=== PATIENT | female | born 1990 | race Caucasian/White ===

== ENCOUNTER 2025-05-06 06:55 | Emergency (ER) | payer OTHER ==
[2025-05-06] MEDS ORDERED: LORazepam 2 MG/ML VIAL ONE (07:33)
[2025-05-06] MEDS ORDERED: NA CHLORIDE 0.9% 1,000 ML ONE (07:34)
[2025-05-06] MEDS ORDERED: KETOROLAC 30 MG/ML INJ ONE (07:50)
[2025-05-06] MEDS ORDERED: ONDANSETRON 4 MG/2 ML VIAL ONE ×2 (07:50→08:09)
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
--- NOTE | 2025-05-06 08:46 | ER ---
Nurse's Notes [facility] Name: Ramya Hopson Age: 35 yrs Sex: Female : 1990 Arrival Date: 05/06/2025 Time: 06:55 Bed 17 Private MD: Diagnosis: Anxiety disorder, unspecified;Hyperventilation Presentation: 05/06 07:15 Chief complaint: Patient states: Anxiety attack since yesterday at 1100 with N/V/D, hx jl7 of anxiety. 07:15 Coronavirus screen: At this time, the client does not indicate any symptoms associated jl7 with coronavirus-19. Ebola Screen: No symptoms or risks identified at this time. Initial Sepsis Screen: Does the patient meet any 2 criteria? No. Patient's initial sepsis screen is negative. Does the patient have a suspected source of infection? No. Patient's initial sepsis screen is negative. Risk Assessment: Do you want to hurt yourself or someone else? Patient reports no desire to harm self or others. Onset of symptoms was May 05, 2025 at 11:00. 07:15 Method Of Arrival: Ambulatory [facility] 07:15 Acuity: HERIBERTO 3 jl7 Triage Assessment: 07:23 General: Appears in no apparent distress. uncomfortable, Behavior is cooperative, jl7 anxious, restless. Pain: Complains of pain in tingling all over Pain currently is 8 out of 10 on a pain scale. Respiratory: Reports shortness of breath Onset: The symptoms/episode began/occurred gradually, the patient has mild shortness of breath. 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 - Infectious Disease History:: Denies. - Family history:: not pertinent. - Social history:: Smoking status: Reported history of juuling and/or vaping. - Hospitalizations: : No recent hospitalization is reported. Screenin:[facility] ED Fall Risk Assessment (Adult) History of falling in the last 3 months, db including since admission No falls in past 3 months (0 pts) Confusion or Disorientation No (0 pts) Intoxicated or Sedated No (0 pts) Impaired Gait No (0 pts) Mobility Assist Device Used No (0 pt) Altered Elimination No (0 pt) Score/Fall Risk Level 0 - 2 = Low Risk Oriented to surroundings, Maintained a safe environment. Abuse screen: Denies threats or abuse. Denies injuries from another. Nutritional screening: No deficits noted. Tuberculosis screening: No symptoms or risk factors identified. Assessment: 07:13 Reassessment: Patient appears in no apparent distress at this time. Patient and/or db family updated on plan of care and expected duration. Pain level reassessed. Patient is alert, oriented x 3, equal unlabored respirations, skin warm/dry/pink. Reassessment: PATIENT AMBULATORY TO ROOM IN [facility]. General: Appears in no apparent distress. comfortable, Behavior is calm, cooperative. Neuro: Level of Consciousness is awake, alert, obeys commands, Oriented to person, place, time, situation. Cardiovascular: Rhythm is regular. Respiratory: Airway is patent Respiratory effort is even, unlabored, Respiratory pattern is regular, symmetrical. 07:50 Reassessment: NOTIFIED DR. SCOTT PT COMPLAINING OF CHRONIC ARTHRITIS PAIN IN HIPS . SEE db MAR FOR MEDICATION ADMINISTRATION. Patient states symptoms have improved. Respiratory: Airway is patent Respiratory effort is even, unlabored, Respiratory pattern is regular, symmetrical, Breath sounds are clear. 08:58 Reassessment: Patient appears in no apparent distress at this time. Patient and/or db family updated on plan of care and expected duration. Pain level reassessed. Patient is alert, oriented x 3, equal unlabored respirations, skin warm/dry/pink. DC PENDING NS BOLUS COMPLETION. 09:09 Reassessment: Patient appears in no apparent distress at this time. Patient and/or db family updated on plan of care and expected duration. Pain level reassessed. Patient is alert, oriented x 3, equal unlabored respirations, skin warm/dry/pink. Patient states feeling better. Patient states symptoms have improved. Vital Signs: 07:15 BP 130 / 85; Pulse 86; Resp 21; Temp 97; Pulse Ox 100% ; Weight 63.5 kg; Height 5 ft. 4 jl7 in. ; Pain 8/10; 07:38 BP 126 / 72; Pulse 64; Resp 16; Pulse Ox 100% on R/A; db 08:30 BP 116 / 82; Pulse 78; Resp 16; Pulse Ox 100% on R/A; db 09:00 BP 109 / 76; Pulse 85; Resp 16; Pulse Ox 100% ; db 07:15 Body Mass Index 24.03 (63.50 kg, 162.56 cm) jl7 07:15 Pain Scale: Adult jl7 ED Course: 06:59 Patient arrived in ED. gm2 07:06 Erwin Scott MD is Attending Physician. rn 07:13 Maria Luisa Alan, KEVON is Primary Nurse. db 07:23 Triage completed. jl7 07:23 Arm band placed on right wrist. jl7 07:30 Inserted saline lock: 20 gauge in right antecubital area, using aseptic technique. db Flushed with 10 mL NS. 07:40 Patient has correct armband on for positive identification. Bed in low position. Call db light in reach. Side rails up X 1. Pulse ox on. NIBP on. Warm blanket given. Pillow given. 09:09 Provided Education on: DISCHARGE AND FOLLOWUP. db 09:09 No provider procedures requiring assistance completed. IV discontinued, intact, db bleeding controlled, No redness/swelling at site. Administered Medications: 07:35 Drug: NS 0.9% IV 1000 ml IV at 1000 ml once; to be given as a bolus over 60 minutes db Route: IV; Rate: 1000 ml; Site: right antecubital; 09:07 Follow up: Response: No adverse reaction; IV Status: Completed infusion; IV Intake: db 1000ml 07:35 Drug: Ativan IVP 1 mg IVP once Route: IVP; Site: right antecubital; db 09:07 Follow up: Response: No adverse reaction db 07:50 Drug: Ketorolac IVP 15 mg IVP once Route: IVP; Site: right antecubital; db 09:07 Follow up: Response: No adverse reaction db 07:54 Drug: Ondansetron IVP 4 mg IVP once; over 2 minutes Route: IVP; Site: right antecubital;db 09:07 Follow up: Response: No adverse reaction db Medication: 07:41 VIS not applicable for this client. db Intake: : IV: 1000ml; Total: 1000ml. db Outcome: 08:45 Discharge ordered by . kevon : Discharged to home ambulatory, with friend, becky : Condition: stable :09 Discharge instructions given to patient, friend, Instructed on discharge instructions, follow up and referral plans. Prescriptions given X 1, 09:12 Patient left the ED. db Signatures: Erwin Scott MD MD rn Leal, Jahala RN RN jl7 Maria Luisa Alan, RN RN Mercedes Catalan 2
[2025-05-06 09:33] VITALS: TEMP 97; O2SAT 100
[2025-05-06 09:39] VITALS: BP 109/76
== END 2025-05-06 09:12 | disposition home or self-care (01) ==
LOC: ER 06:55
DX: F41.9 Anxiety disorder, unspecified (principal); R06.4 Hyperventilation; R06.02 Shortness of breath; F43.10 Post-traumatic stress disorder, unspecified; R11.0 Nausea; R19.7 Diarrhea, unspecified; E03.9 Hypothyroidism, unspecified; F17.290 Nicotine dependence, other tobacco product, uncomplicated
CPT/HCPCS: 96361; 96375; 96374; 99284; J2405; J7030; J1885

== ENCOUNTER 2025-05-12 09:38 | Emergency (ER) | payer OTHER ==
[2025-05-12] MEDS ORDERED: NA CHLORIDE 0.9% 1,000 ML ONE (10:21)
[2025-05-12] MEDS ORDERED: ONDANSETRON 4 MG/2 ML VIAL ONE (10:21)
[2025-05-12] MEDS ORDERED: KETOROLAC 30 MG/ML INJ ONE (10:21)
[2025-05-12] MEDS ORDERED: LORazepam 2 MG/ML VIAL ONE (10:21)
--- NOTE | 2025-05-12 10:29 | RAD REPORT ---
Procedure: Chest Single View HISTORY: Shortness of breath COMPARISON: none FINDINGS: The lungs appear clear of acute infiltrate. No significant pleural effusion noted. The heart is normal size. IMPRESSION: No acute abnormality is displayed.
[2025-05-12 10:45] LABS: Absolute Lymphocytes (CBC) 2.6 K/uL (0.7-4.9); Hematocrit 39.4 % (36.0-45.0); Hemoglobin 13.7 g/dL (12.0-15.0); MCH 30.0 pg (27.0-35.0); MCHC 34.7 g/dL (32.0-36.0); MCV 86.5 fL (80-100); MPV 7.9 fL (7.6-11.3); Nucleated RBC Absolute Count 0.0 (0-0); Nucleated Red Blood Cells % 0.1 % (0-0); RBC Red Blood Cell Count 4.56 M/uL (3.86-4.86); White Blood Count 8.90 thou/uL (4.3-10.9)
[2025-05-12 11:03] LABS: Anion Gap 15.8 mEq/L (5.0-15.0); BUN Blood Urea Nitrogen 18 mg/dL (7-18); Glucose Level 89 mg/dL (74-106); Potassium 3.8 mEq/L (3.5-5.1)
[2025-05-12 11:19] LABS: Troponin High Sensitivity < 3.0 pg/mL (<58.9)
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
--- NOTE | 2025-05-12 11:53 | ER ---
Nurse's Notes [facility] Name: Ramya Hopson Age: 35 yrs Sex: Female : 1990 Arrival Date: 05/12/2025 Time: 09:38 Bed 18 Private MD: Diagnosis: Panic disorder [episodic paroxysmal anxiety] without agoraphobia;Post-traumatic stress disorder (PTSD) Presentation: 05/12 09:49 Chief complaint: Patient states: SOB, started this morning, also c/o N/V. unable to af3 keep down fluids for 3 days. Coronavirus screen: At this time, the client does not indicate any symptoms associated with coronavirus-19. Ebola Screen: No symptoms or risks identified at this time. Initial Sepsis Screen: Does the patient meet any 2 criteria? No. Patient's initial sepsis screen is negative. Does the patient have a suspected source of infection? No. Patient's initial sepsis screen is negative. Risk Assessment: Do you want to hurt yourself or someone else? Patient reports no desire to harm self or others. Onset of symptoms was May 12, 2025. 09:49 Method Of Arrival: Ambulatory af3 09:49 Acuity: HERIBERTO 3 af3 Triage Assessment: 09:50 General: Appears in no apparent distress. uncomfortable, well groomed, well developed, af3 Behavior is appropriate for age, anxious. Pain: Denies pain. Neuro: Level of Consciousness is awake, alert, obeys commands, Oriented to person, place, time, situation, Appropriate for age. Cardiovascular: Patient's skin is warm and dry. Rhythm is sinus tachycardia. Respiratory: Reports shortness of breath Onset: The symptoms/episode began/occurred this morning, the patient has mild shortness of breath. Historical: - Allergies: 09:50 No Known Allergies; af3 - PMHx: 09:50 Anxiety; Bipolar disorder; depressive disorder; Hypothyroidism; PTSD; Rheumatoid af3 Arthritis; - Immunization history:: Adult Immunizations unknown. - Infectious Disease History:: Denies. - Social history:: Smoking status: unknown. Screenin:00 [facility] ED Fall Risk Assessment (Adult) History of falling in the last 3 months, ar8 including since admission No falls in past 3 months (0 pts) Confusion or Disorientation No (0 pts) Intoxicated or Sedated No (0 pts) Impaired Gait No (0 pts) Mobility Assist Device Used No (0 pt) Altered Elimination No (0 pt) Score/Fall Risk Level 0 - 2 = Low Risk Oriented to surroundings, Maintained a safe environment. Abuse screen: Denies threats or abuse. Nutritional screening: No deficits noted. Tuberculosis screening: No symptoms or risk factors identified. Assessment: 10:05 General: Appears uncomfortable, Behavior is cooperative, anxious. ar8 10:05 Neuro: Level of Consciousness is awake, alert, obeys commands, Oriented to person, ar8 place, time, situation. Cardiovascular: Patient's skin is warm and dry. Cardiovascular: Rhythm is sinus tachycardia. Respiratory: Airway is patent Trachea midline Respiratory effort is even, unlabored, Respiratory pattern is tachypnea Breath sounds are clear bilaterally. GI: No signs and/or symptoms were reported involving the gastrointestinal system. : No signs and/or symptoms were reported regarding the genitourinary system. EENT: No signs and/or symptoms were reported regarding the EENT system. Vital Signs: 09:49 BP 133 / 96; Pulse 123; Resp 22; Pulse Ox 100% on R/A; Weight 63.5 kg; Height 5 ft. 4 af3 in. ; 11:00 BP 113 / 73; Pulse 96; Resp 20 S; Pulse Ox 100% on R/A; ar8 12:00 BP 129 / 85; Pulse 104; Resp 15 S; Pulse Ox 99% on R/A; Pain 0/10; ar8 12:45 BP 122 / 81; Pulse 101; Resp 18; Pulse Ox 99% on R/A; ar8 09:49 Body Mass Index 24.03 (63.50 kg, 162.56 cm) af3 12:00 Pain Scale: Adult ar8 ED Course: 09:39 Patient arrived in ED. ts1 09:41 [facility] dr5 09:41 Erwin Scott MD is Attending Physician. dr5 09:45 Arm band placed on Patient placed in an exam room, on a stretcher. ll1 09:50 Triage completed. af3 10:04 Michael Ni, KEVON is Primary Nurse. ar8 10:05 Bed in low position. Call light in reach. Side rails up X2. ar8 10:05 Provided Education on: plan of care. ar8 10:10 EKG done, by ED staff, reviewed by Tony GARZA. ar8 10:15 No provider procedures requiring assistance completed. Inserted saline lock: 22 gauge ar8 in right antecubital area, using aseptic technique. Blood collected. Flushed with 10 mL NS. 10:17 Basic Metabolic Panel Sent. ar8 10:17 CBC with Diff Sent. ar8 10:17 Troponin HS Sent. ar8 10:23 XRAY Chest (1 view) In Process Unspecified. EDMS 12:55 IV discontinued, intact, bleeding controlled, No redness/swelling at site. Pressure ar8 dressing applied. Administered Medications: 10:59 Drug: NS 0.9% IV 1000 ml IV at 1000 ml once; to be given as a bolus over 60 minutes ar8 Route: IV; Rate: 1000 ml; Site: right antecubital; 12:00 Follow up: Response: No adverse reaction; IV Status: Completed infusion; IV Intake: ar8 1000ml 10:59 Drug: Ondansetron IVP 4 mg IVP once; over 2 minutes Route: IVP; Site: right antecubital;ar8 12:00 Follow up: Response: No adverse reaction; Marked relief of symptoms ar8 11:02 Drug: Ketorolac IVP 15 mg IVP once Route: IVP; Site: right antecubital; ar8 12:00 Follow up: Response: No adverse reaction; Marked relief of symptoms ar8 11:04 Drug: Ativan IVP 1 mg IVP once Route: IVP; Site: right antecubital; ar8 12:00 Follow up: Response: No adverse reaction; Marked relief of symptoms; Anxiety decreased ar8 Medication: 11:00 VIS not applicable for this client. ar8 Intake: 12:00 IV: 1000ml; Total: 1000ml. ar8 Outcome: 11:52 Discharge ordered by . dr5 12:55 Discharged to home ambulatory, ar8 12:55 Condition: stable 12:55 Discharge instructions given to patient, friend, Instructed on discharge instructions, follow up and referral plans. Demonstrated understanding of instructions, follow-up care, 13:00 Patient left the ED. ar8 Signatures: Dispatcher [employer] EDMS Brice Sullivan RN RN ll1 Janelle Padilla PAS PAS ts1 Theresa Gates RN RN af3 Tony Helm FNP-C FNP-5 Michael Ni, RN RN ar8
[2025-05-12 13:11] VITALS: O2SAT 99
[2025-05-12 13:13] VITALS: BP 122/81
== END 2025-05-12 13:00 | disposition home or self-care (01) ==
LOC: ER 09:38
DX: F41.0 Panic disorder [episodic paroxysmal anxiety] (principal); F43.10 Post-traumatic stress disorder, unspecified; F41.9 Anxiety disorder, unspecified; F32.A Depression, unspecified; E03.9 Hypothyroidism, unspecified
CPT/HCPCS: 96361; 93005; 85025; 80048; 36415; 84484; 71045; 96375; 96374; 99284; J2405; J7030